=== PATIENT | male | born 1995 | race Caucasian/White ===

== ENCOUNTER 2016-06-29 13:28 | Emergency (ER) | payer BC, OTHER ==
[2016-06-29] MEDS ORDERED: IBUPROFEN 800 MG TABLET ONE (13:55)
--- NOTE | 2016-06-29 14:20 | RAD ---
History: Fever with cough and chest pain. Exposure to chlorine bleach. Comparison: 02/28/2013. Technique: 2 views Findings: The soft tissue and bony structures are unremarkable. The heart size is appropriate. No infiltrate, effusion or pneumothorax is observed. The hilar and mediastinal structures are normal. Impression: 1. A negative 2 view chest
== END 2016-06-29 14:36 | disposition home or self-care (01) ==
LOC: ED 13:28
DX: J06.9 Acute upper respiratory infection, unspecified (principal); J45.909 Unspecified asthma, uncomplicated
CPT/HCPCS: 71020; 99283 ×2; A9270